=== PATIENT | female | born 1995 | race Hispanic/Latino ===

== ENCOUNTER → 2023-12-02 14:16 | Outpatient (REF) | payer OTHER, SELFPAY | LOC: RAD 14:16 | PROVIDERS: ATTENDING PHYSICIAN Nurse Practitioner Acute Care | DX: I83.899 Varicose veins of unspecified lower extremity with other complications (principal) | CPT/HCPCS: 93970 ==

== ENCOUNTER → 2025-01-05 08:17 | Outpatient (REF) | payer OTHER, SELFPAY ==
[2025-01-05 09:01] LABS: Hematocrit 37.9 % (37.0-47.0); Hemoglobin 12.9 g/dL (12.0-16.0); Mean Corpuscular Hgb 30.6 pg (27.0-31.0); Mean Corpuscular Volume 89.8 fL (81.0-99.0); Mean Platelet Volume 9.3 fL (7.4-10.4); Platelet Count 298 10^3/uL (130-400); Red Blood Cell Count 4.22 10^6/uL (4.20-5.40); Red Cell Dist. Width 12.2 % (11.5-14.5); White Blood Cell Count 6.3 10^3/uL (4.8-10.8)
[2025-01-05 09:34] LABS: ALT (SGPT) 21 U/L (0-35); AST (SGOT) 22 U/L (14-36); Albumin 4.5 g/dl (3.5-5.0); Alkaline Phosphatase 85 U/L (38-126); Blood Urea Nitrogen 12 mg/dl (7-17); Calcium 9.5 mg/dl (8.4-10.2); Carbon Dioxide 25 mmol/L (22-30); Chloride 107 mmol/L (98-107); Glucose 90 mg/dl (70-99); Potassium 4.3 mmol/L (3.5-5.1); Sodium 141 mmol/L (135-145); Total Bilirubin 0.5 mg/dl (0.2-1.3); Total Protein 6.7 g/dl (6.3-8.2); eGFR > 60.00
[2025-01-05 09:55] LABS: Vitamin D, 25-OH*** 27.8 ng/mL (30-80)
[2025-01-05 10:45] LABS: Folate 17.2 ng/ml (2.76-20); Vitamin B12 237 pg/ml (239-931)
== END ==
LOC: REG 08:17
PROVIDERS: ATTENDING PHYSICIAN Nurse Practitioner Adult Health
DX: E53.8 Deficiency of other specified B group vitamins (principal); E55.9 Vitamin D deficiency, unspecified
CPT/HCPCS: 36415; 80053; 82306; 82607; 82746; 85027

== ENCOUNTER 2025-06-18 15:32 | Emergency (ER) | payer OTHER, SELFPAY ==
[2025-06-18 15:45] VITALS: BP 115/79
[2025-06-18 16:05] LABS: Hematocrit 34.8 % (37.0-47.0); Hemoglobin 12.1 g/dL (12.0-16.0); Mean Corp Hgb Conc. 34.8 g/dL (33.0-37.0); Mean Corpuscular Volume 89.5 fL (81.0-99.0); Nucleated Red Blood Cells % 0 %; Platelet Count 303 10^3/uL (130-400); Red Cell Dist. Width 12.1 % (11.5-14.5)
[2025-06-18 16:20] LABS: COVID-19 Antigen Negative (Negative); Urine Character Slightly Cloudy (Clear)
[2025-06-18 16:27] LABS: HCG, Serum Qualitative Screen Negative
[2025-06-18 16:31] LABS: ALT (SGPT) 16 U/L (0-35); AST (SGOT) 19 U/L (14-36); Albumin 4.0 g/dl (3.5-5.0); Alkaline Phosphatase 82 U/L (38-126); Blood Urea Nitrogen 6 mg/dl (7-17); Calcium 9.0 mg/dl (8.4-10.2); Carbon Dioxide 24 mmol/L (22-30); Chloride 108 mmol/L (98-107); Glucose 100 mg/dl (70-99); Potassium 4.0 mmol/L (3.5-5.1); Sodium 137 mmol/L (135-145); Total Protein 6.6 g/dl (6.3-8.2); eGFR > 60.00
--- NOTE | 2025-06-18 16:39 | ED.GENMED ---
History of Present Illness
<Juwan Shanks MD, Resident - Last Filed: 06/18/25 21:11>
General
Chief Complaint: Fever
Source: patient and spouse
Time Seen by Provider: 06/18/25 16:38
History of Present Illness
History of Present Illness:
Patient is a 29-year-old female who presents to the emergency department with a fever that started yesterday and generalized body aches with left flank pain. She stated that symptoms started a week ago with left flank pain initially. She was able
to urinate normally without any abnormal color or smell. Her bowel habits remained unchanged. Unfortunately, prior to the patient's presentation to the emergency department she started to have headaches, goosebumps, and generalized pain. Her
pain is predominantly focused on the left side and is also in her left hand. Her most severe pain is left flank pain. Prior to arrival in the emergency department she took numerous Tylenol which helped improve her fever symptoms. She has not had
any nausea vomiting or diarrhea. She has not had any chest pain, shortness of breath, or dizziness.
Past History
<Juwan Shanks MD, Resident - Last Filed: 06/18/25 21:11>
Past History
ED Past Medical History: None
ED Past Surgical History: Cholecystectomy
Social History
Tobacco: Non-smoker
Alcohol: Occasional
Drug: None
Employment: Employed
Review of Systems
<Juwan Shanks MD, Resident - Last Filed: 06/18/25 21:11>
Review of Systems
Constitutional: Reports fever, fatigue and chills
EENT: Reports no symptoms
Respiratory: Reports no symptoms
Cardiac: Reports no symptoms
ABD/GI: Reports abdominal pain ( Left-sided abdominal pain along with suprapubic pain)
: Reports other ( left flank pain)
Skin: Reports no symptoms
Neurological: Reports no symptoms
Endocrine: Reports no symptoms
Hematologic/Lymphatic: Reports no symptoms
Psychiatric: Reports no symptoms
Phy Exam
<Juwan Shanks MD, Resident - Last Filed: 06/18/25 21:11>
General Physical Exam
General Presentation: well appearing
General age: appears stated age
General Skin: warm and dry
General Habitus: normal
General Mental: alert
General Hydration: appears well hydrated
Cardiovascular Exam
Cardiovascular Exam: regular rate/rhythm, no edema, no gallop, no JVD, no murmur and normal peripheral pulses
Pulmonary Exam
Pulmonary Exam: lungs clear, no respiratory distress, no rales, chest non tender, no crackles, no rhonchi, no stridor, no wheezing and no cough
Gastrointestinal Exam
Gastrointestinal Exam: normal bowel sounds, non tender, no organomegaly, no pulsatile mass and cva tenderness ( left-sided)
Musculoskeletal Exam
Musculoskeletal Exam: full ROM
Skin Exam
Skin Exam: normal color, warm/dry and no rash
Psychiatric Exam
Psychiatric Exam: normal mood/affect
Course
<Juwan Shanks MD, Resident - Last Filed: 06/18/25 21:11>
Orders/Labs/Results
Orders:
Orders
06/18/25 15:49
Test Result ONCE
06/18/25 15:53
Complete Blood Count/With Diff Urgent
Comprehensive Metabolic Panel Urgent
, Serum Qualitative Screen [HCG, Serum Qualitative Screen] Urgent
06/18/25 15:54
COVID-19 Antigen Urgent
Source: Nasal Swab
Urinalysis Reflex To Culture Urgent
Date Specimen was Collected: 06/18/25
Time Specimen was Collected: 15:49
Urine Microscopic Reflex Cult Urgent
Urine Culture Urgent
SHEILA Source: U
Specimen Description:
Date Specimen was Collected: 06/18/25
Time Specimen was Collected: 15:49
06/18/25 17:13
Influenza A+B Rapid Molecular Urgent
SHEILA Source: Nasal Swab
Specimen Description:
06/18/25 17:17
Cephalexin Monohydrate [Keflex] 500 mg PO NOW STA
06/18/25 17:36
CT Abd/pel Without Iv Or Oral Urgent
Comment:
Reason For Exam: L flank pain, L abd pain
06/18/25 17:57
Ketorolac [Toradol] 15 mg IV NOW STA
06/18/25 18:31
Ketorolac [Toradol] 15 mg IM NOW STA
Abnormal Lab Results
06/18/25 06/18/25
15:53 15:54
RBC 3.89 L 10^6/uL
(4.20-5.40)
Hct 34.8 L %
(37.0-47.0)
MCH 31.1 H pg
(27.0-31.0)
Absolute Neuts (auto) 6.9 H 10^3/uL
(1.4-6.5)
Absolute Lymphs (auto) 0.7 L 10^3/uL
(1.2-3.4)
Neutrophils % 84.1 H %
(42.2-75.2)
Lymphocytes % 8.7 L %
(20.5-51.1)
Chloride 108 H mmol/L
(98-107)
BUN 6 L mg/dl
(7-17)
Creatinine 0.5 L mg/dL
(0.6-1.0)
Glucose 100 H mg/dl
(70-99)
Ur Occult Blood Reflex 4+ A
(Negative)
Leukocyte Esterase Rfl 3+ A
(Negative)
Urine RBC 40-50 A /HPF
(0-2)
Urine WBC (Reflex) 40-50 A /HPF
(0-5)
Urine Bacteria (Reflex) Moderate A
(Negative)
Urine Albumin (Reflex) 1+ A
(Neg - Trace)
06/18/25 15:53
06/18/25 15:53
Vital Signs
Initial and Last Documented VS:
Initial Vital Signs
Temp Pulse Resp BP Pulse Ox
100.3 F 123 18 115/79 97
06/18/25 15:45 06/18/25 15:45 06/18/25 15:45 06/18/25 15:45 06/18/25 15:45
Last Documented Vital Signs
Temp Pulse Resp BP Pulse Ox
98.9 F 84 14 106/66 98
06/18/25 18:34 06/18/25 19:52 06/18/25 19:52 06/18/25 19:52 06/18/25 18:34
<Hadley Barbosa, DO - Last Filed: 06/19/25 00:28>
Orders/Labs/Results
Orders:
Orders
06/18/25 15:49
Test Result ONCE
06/18/25 15:53
Complete Blood Count/With Diff Urgent
Comprehensive Metabolic Panel Urgent
, Serum Qualitative Screen [HCG, Serum Qualitative Screen] Urgent
06/18/25 15:54
COVID-19 Antigen Urgent
Source: Nasal Swab
Urinalysis Reflex To Culture Urgent
Date Specimen was Collected: 06/18/25
Time Specimen was Collected: 15:49
Urine Microscopic Reflex Cult Urgent
Urine Culture Urgent
SHEILA Source: U
Specimen Description:
Date Specimen was Collected: 06/18/25
Time Specimen was Collected: 15:49
06/18/25 17:13
Influenza A+B Rapid Molecular Urgent
SHEILA Source: Nasal Swab
Specimen Description:
06/18/25 17:17
Cephalexin Monohydrate [Keflex] 500 mg PO NOW STA
06/18/25 17:36
CT Abd/pel Without Iv Or Oral Urgent
Comment:
Reason For Exam: L flank pain, L abd pain
06/18/25 17:57
Ketorolac [Toradol] 15 mg IV NOW STA
06/18/25 18:31
Ketorolac [Toradol] 15 mg IM NOW STA
Abnormal Lab Results
06/18/25 06/18/25
15:53 15:54
RBC 3.89 L 10^6/uL
(4.20-5.40)
Hct 34.8 L %
(37.0-47.0)
MCH 31.1 H pg
(27.0-31.0)
Absolute Neuts (auto) 6.9 H 10^3/uL
(1.4-6.5)
Absolute Lymphs (auto) 0.7 L 10^3/uL
(1.2-3.4)
Neutrophils % 84.1 H %
(42.2-75.2)
Lymphocytes % 8.7 L %
(20.5-51.1)
Chloride 108 H mmol/L
(98-107)
BUN 6 L mg/dl
(7-17)
Creatinine 0.5 L mg/dL
(0.6-1.0)
Glucose 100 H mg/dl
(70-99)
Ur Occult Blood Reflex 4+ A
(Negative)
Leukocyte Esterase Rfl 3+ A
(Negative)
Urine RBC 40-50 A /HPF
(0-2)
Urine WBC (Reflex) 40-50 A /HPF
(0-5)
Urine Bacteria (Reflex) Moderate A
(Negative)
Urine Albumin (Reflex) 1+ A
(Neg - Trace)
06/18/25 15:53
06/18/25 15:53
Vital Signs
Initial and Last Documented VS:
Initial Vital Signs
Temp Pulse Resp BP Pulse Ox
100.3 F 123 18 115/79 97
06/18/25 15:45 06/18/25 15:45 06/18/25 15:45 06/18/25 15:45 06/18/25 15:45
Last Documented Vital Signs
Temp Pulse Resp BP Pulse Ox
98.9 F 84 14 106/66 98
06/18/25 18:34 06/18/25 19:52 06/18/25 19:52 06/18/25 19:52 06/18/25 18:34
<Juwan Shanks MD, Resident - Last Filed: 06/18/25 21:11>
*Pulse Oximetry
SaO2: 97
Oxygen Mode of Delivery: Room air
Patient hypoxic: no
*Critical Care Note
Total Time (30-74mins, 75-104mins- exclusive of procedures): 60
<Juwan Shanks MD, Resident - Last Filed: 06/18/25 21:11>
Update Note
Update Note:
Problem List:
fever/fatigue
left flank pain
left-sided abdominal pain with suprapubic pain
Plan:
beta-hCG ordered to rule out
CBC and CMP ordered
urine analysis with reflex to culture
CT abdomen and pelvis without IV contrast ordered
Differential Diagnoses:
pyelonephritis
nephrolithiasis
UTI
acute interstitial nephritis
hydronephrosis secondary to nephrolithiasis
Radiology:
EKG: not applicable
Labs:
CBC with an elevated neutrophil percentile of 84.1
CMP unremarkable
beta-hCG negative
urinalysis with 4+ occult blood, 3+ leukocyte esterase, 50-40 urine RBC, 50-40 urine WBC, bacteria moderate, 1+ urine albumin
Updates:
clinical picture suspicious for pyelonephritis - urine analysis positive for bacteria and likely UTI
50 mg IM Toradol given
CT abdomen and pelvis positive for acute left pyelonephritis with cystitis.
Patient normotensive and nontoxic-appearing
patient will be discharged home with Keflex 500 mg twice daily for 7 days
patient would like to be discharged from the emergency department. There are no barriers that would impede the patient from being safely discharged.
ED Attending Note
<Juwan Shanks MD, Resident - Last Filed: 06/18/25 21:11>
-
Portions of this chart may have been created with voice recognition software.� Occasional wrong word or��sound alike� substitutions may have occurred due to the inherent limitations of voice recognition software.
<Hadley Barbosa, - Last Filed: 06/19/25 00:28>
ED Attending Note
Patient seen and examined by attending physician: Yes
I performed a history and physical exam of patient and discussed management with resident, I reviewed resident's note and agree with documented findings and plan of care.: Yes
ED Attending Note:
I have reviewed and agree with history and treatment plan by Juwan Shanks.MD.
Exam revealed 29-year-old female in minimal distress mild left CVA tenderness. Abdomen soft nontender nondistended. Except for mild suprapubic tenderness. CT abdomen pelvis reveals pyelonephritis and cystitis. Treated with Keflex. Follow-up
with primary care. Return precautions given.
Discharge Plan
Departure
Patient Disposition: Home (Routine Discharge)
Date of Disposition: 06/18/25
Time of Disposition: 20:08
Patient with high blood pressure during this ER visit?: No
Discharge Problem:
Acute bacterial pyelonephritis, Acute cystitis
Instructions: Urinary tract infection in adults - ED (DC)
Prescriptions:
New
cephalexin 500 mg capsule
500 mg PO BID Qty: 14 0RF
Referrals:
OP, [facility] [Other]
Interventions
Interventions:
*Risk Screen - Suicide Last Done: 06/18/25 15:45
*General Assessment Last Done: 06/18/25 15:45
*Neglect/Abuse Screening Last Done: 06/18/25 15:45
*ED- Fall Risk Assessment Last Done: 06/18/25 17:10
*ED COVID-19 Vaccine History Last Done: 06/18/25 17:10
*Nursing Disposition Last Done: 06/18/25 20:25
ED- Neurological Assessment Last Done: 06/18/25 20:13
ED-Skin Assessment Last Done: 06/18/25 20:13
Discharge Date and Time
Discharge Date/Time: 06/18/25 20:25
Print Language: [email or web address]
[2025-06-18 17:09] VITALS: BP 111/74
[2025-06-18 17:09] LABS: Urine Red Blood Cell 40-50 /HPF (0-2); Urine Urothelial Cell 0-2 /LPF (FEW)
[2025-06-18 17:10] VITALS: BMI 27.1
[2025-06-18 17:10] LABS: Urine White Cell 40-50 /HPF (0-5)
[2025-06-18 18:00] VITALS: BP 88/57
[2025-06-18 18:34] VITALS: BP 90/55
[2025-06-18] MEDS: TORADOL 15 MG IM (18:37)
[2025-06-18 19:52] VITALS: BP 106/66
== END 2025-06-18 20:25 | disposition home or self-care (01) ==
LOC: EMR 15:32
PROVIDERS: Student in an Organized Health Care Education/Training Program; EMERGENCY PHYSICIAN Emergency Medicine
DX: N30.00 Acute cystitis without hematuria (principal); Z90.49 Acquired absence of other specified parts of digestive tract
CPT/HCPCS: 99284; 96374; 96372; 74176; 80053; 81003; 81015; 84703; 85025; 87077; 87086; 87186; 87502; 87811

== ENCOUNTER → 2025-07-24 09:31 | Outpatient (REF) | payer OTHER, SELFPAY ==
[2025-07-29 05:13] LABS: HPV, High Risk Detected; HPV, High Risk Source Cervical
== END ==
LOC: CLINIC 09:31
PROVIDERS: ATTENDING PHYSICIAN Nurse Practitioner Adult Health
DX: R87.612 Low grade squamous intraepithelial lesion on cytologic smear of cervix (LGSIL) (principal)
CPT/HCPCS: 87624; G0123